=== PATIENT | female | born 1990 | race African-American/Black ===

== ENCOUNTER 2017-05-10 17:43 | Emergency (ER) | payer OTHER ==
[~2017-05-10] VITALS: Ht 160 cm; Wt 73.5 kg
== END 2017-05-10 18:43 | disposition home or self-care (01) ==
LOC: ER 17:43
DX: S61.012A Laceration without foreign body of left thumb without damage to nail, initial encounter (principal); F17.210 Nicotine dependence, cigarettes, uncomplicated; W26.0XXA Contact with knife, initial encounter; Y93.89 Activity, other specified; Y92.89 Other specified places as the place of occurrence of the external cause; Y99.8 Other external cause status